=== PATIENT | female | born 2005 | race Two or more races ===

== ENCOUNTER 2025-05-09 19:52 | Emergency (ER) | payer MEDICAID, OTHER ==
[~2025-05-09] VITALS: Ht 149.9 cm; Wt 68.0 kg
--- NOTE | 2025-05-09 20:56 | DVH ---
CHEST RADIOGRAPH Indication: Inhalation of bug fogger Technique: Frontal and lateral view of the chest was obtained Comparison: None FINDINGS: Lines and Tubes: None Lungs: Clear Pleura: No effusion. No pneumothorax. Cardiomediastinal contours: Unremarkable Bones: Unremarkable IMPRESSION: 1. No evidence of acute disease.
--- NOTE | 2025-05-09 21:12 | ED.PDOC ---
SOB-HPI HPI Comments PT HAS C/O POSSIBLE INHALTION OF LLOYD NOYOLAGER AT 11 OR 12 YESTERDAY. CHEST PAIN DIFFICULTY BREATHING, SHORTNESS OF BREATH, FEVER, CHILLS, NAUSEA OR VOMITING. Chief Complaint: Inhalation Time Seen by MD: 20:01 Reviewed notes: Nurses Notes, Medications, Allergies Mode of Arrival: Ambulatory Past Medical History PAST MEDICAL HISTORY: Denies Surgical History: Denies all surgeries FIRE FIGHTER History: No Pertinent FIRE FIGHTER History Family History Family History: Unknown Social History Smoker: Non-Smoker Alcohol: Denies ETOH Use Drugs: Denies Drug Use All Other Systems: Reviewed and Negative (SEE HPI) Physical Exam General Appearance: No Apparent Distress, Normal HEENT: Normal ENT Inspection, Pharynx Normal, TMs Normal Neck: Full Range of Motion, Non-Tender Respiratory: Chest Non-Tender, Lungs Clear, No Accessory Muscle Use, No Respiratory Distress, Normal Breath Sounds Cardiovascular: No Edema, No JVD, No Murmur, No Gallop, Normal Peripheral Pulses, Regular Rate/Rhythm Breast Exam: Deferred Gastrointestinal: No Organomegaly, Non Tender, No Pulsatile Mass, Normal Bowel Sounds, Soft Genitalia: Deferred Pelvic: Deferred Rectal: Deferred Extremities: Normal capillary refill, Normal range of motion, No pedal edema Musculoskeletal : Apperance: Normal Neurologic: Alert, No Motor Deficits, Normal Affect, Normal Mood, No Sensory Deficits Cerebellar Function: Normal Reflexes: NOT DONE Skin: Dry, Normal Color, Warm Lymphatic: No Adenopathy Was a procedure done? Was a procedure done?: No Differential Dx Differential Diagnosis: Anxiety, Asthma, Pneumonia, Pneumothorax X-Ray, Labs, Meds, VS Vital Signs Date Time Temp Pulse Resp B/P (MAP) Pulse Ox O2 Delivery O2 Flow Rate FiO2 05/09/25 19:55 98.3 95 18 120/73 98 98.3 X-Ray, Labs, Meds, VS Comment CHEST X-RAY SHOWS NO ACUTE CARDIOPULMONARY FINDINGS. USED TO REST INCREASE P.O. FLUIDS WITH ELECTROLYTES FOLLOW UP WITH THE PCP IN 2-3 DAYS NECESSARY ER RETURN PRECAUTIONS GIVEN PATIENT INDICATES UNDERSTANDING AGREES WITH DISCHARGE PLAN OF CARE Images Reviewed?: Images reviewed and evaluated by me Time of 1ST Reevaluation: 20:01 Reevaluation 1ST: Unchanged Time of 2ND Reevaluation: 21:09 Reevaluation 2ND: Improved Patient Education/Counseling: Diagnosis, Treatment, Need For Follow Up Family Education/Counseling: No Family Present SEPSIS Sepsis Screen Date sepsis recognized/suspect: May 09, 2025 Time Sepsis recognized/suspect: 1956 Recent Procedure: No On Antibiotic Therapy: No Respiratory Rate >20: No Heart Rate >90: Yes Temp<36 C (96.8 F) or >38.3 C: No SBP <90 or MAP <65 mmHG: No New Acute Mental Status Change: No Is the patient on CPAP, BIPAP,: No Physician Orders Chest Two Views Routine (05/09/25 20:02) Vital Signs Date Time Temp Pulse Resp B/P (MAP) Pulse Ox O2 Delivery O2 Flow Rate FiO2 05/09/25 19:55 98.3 95 18 120/73 98 98.3 Departure 1 Departure Time of Disposition: 21:09 Impression: Primary Impression: Exposure to chemical inhalation Disposition: 01 HOME / SELF CARE / HOMELESS Condition: Stable Discharged With: Self Critical Care Note Critical Care Time?: No Stability Stability form required: No Heart Score Heart Score: Heart Score Response (Comments) Value History N/A 0 EKG N/A 0 Age <45 0 Risk Factors N/A 0 Troponin N/A 0 Total 0 DANIELLE TOMAS May 09, 2025 21:12
[2025-05-09 21:44] VITALS: BP 116/76; PULSE 86; RESP 20; TEMP 98.9; O2SAT 98
== END 2025-05-09 21:48 | disposition home or self-care (01) ==
LOC: ER 19:52
DX: Z77.098 Contact with and (suspected) exposure to other hazardous, chiefly nonmedicinal, chemicals (principal)
CPT/HCPCS: 71046